=== PATIENT | male | born 1970 | race Caucasian/White ===

== ENCOUNTER 2016-11-08 17:43 | Emergency (ER) | payer BC ==
[~2016-11-08] VITALS: Ht 182.9 cm; Wt 76.7 kg
[2016-11-08 17:49] VITALS: BP 127/81; PULSE 86; TEMP 36.7; O2SAT 95; Ht 182.9 cm; Wt 76.7 kg
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
== END 2016-11-08 18:06 | disposition home or self-care (01) ==
LOC: C.EDB 17:45
DX: T65.91XA Toxic effect of unspecified substance, accidental (unintentional), initial encounter (principal); T22.412A Corrosion of unspecified degree of left forearm, initial encounter; T21.41XA Corrosion of unspecified degree of chest wall, initial encounter; X58.XXXA Exposure to other specified factors, initial encounter; Z98.49 Cataract extraction status, unspecified eye

== ENCOUNTER 2017-02-24 11:57 | Emergency (ER) | payer OTHER, BC ==
[~2017-02-24] VITALS: Ht 182.9 cm; Wt 77.8 kg
[2017-02-24 12:04] VITALS: TEMP 36.5; Ht 182.9 cm; Wt 77.8 kg
--- NOTE | 2017-02-24 13:03 | DIAGNOSTIC IMAGING REPORT ---
PA CHEST WITH LEFT-SIDED RIB SERIES CLINICAL HISTORY: Left chest wall pain. FINDINGS: A PA chest radiograph with 4 additional views may left-sided rib series is obtained. No prior studies are available for comparison at the time of dictation. The cardiomediastinal silhouette is unremarkable. The lungs and pleural spaces are clear. No pneumothorax is seen. There is no radiographic evidence of acute/distracted left-sided rib fracture. The remainder of the bony thorax is grossly intact. IMPRESSION: 1. No acute cardiopulmonary maladies. 2. There is no radiographic evidence of left-sided rib fracture as clinically queried. Electronically signed by: Alejandro Nielsen M.D. 02/24/2017 1:01 PM Dictated Date/Time: 02/24/2017 12:59 PM
[2017-02-24 13:55] VITALS: BP 134/73; PULSE 58; O2SAT 98
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
== END 2017-02-24 13:50 | disposition home or self-care (01) ==
LOC: C.EDB 11:58 → C.EDD 13:50
DX: S29.011A Strain of muscle and tendon of front wall of thorax, initial encounter (principal); X50.9XXA Other and unspecified overexertion or strenuous movements or postures, initial encounter; Y99.0 Civilian activity done for income or pay; H26.9 Unspecified cataract